=== PATIENT | female | born 1970 ===

== ENCOUNTER 2021-01-09 10:35 | Outpatient (CLI) | payer OTHER | END 2021-01-09 10:36 | disposition home or self-care (01) | LOC: BICMAMMO 10:35 | PROVIDERS: ATTEND Nurse Practitioner | DX: Z12.31 Encounter for screening mammogram for malignant neoplasm of breast (principal); Z98.890 Other specified postprocedural states | CPT/HCPCS: 77063; 77067 ==

== ENCOUNTER 2021-01-24 14:21 | Outpatient (CLI) | payer OTHER | END 2021-01-24 14:22 | disposition home or self-care (01) | LOC: BICMAMMO 14:21 | PROVIDERS: ATTEND Nurse Practitioner | DX: R92.2 Inconclusive mammogram (principal) | CPT/HCPCS: 77066; G0279 ==